=== PATIENT | male | born 1965 | race Caucasian/White ===

== ENCOUNTER 2016-04-29 06:24 | Day surgery (SDC) | payer BC ==
[~2016-04-29] VITALS: Ht 180.3 cm; Wt 107.7 kg
[~2016-04-29 06:24] MED LIST: LACTATED RINGERS 1,000 ML IV SCH; SODIUM CHLORIDE FLUSH 3 ML SYR IV PRN
[2016-04-29 06:34] VITALS: BP 145/86
[2016-04-29] MEDS ORDERED: MIDAZOLAM 2 MG/2 ML (VERSED) VIAL ONE (07:17)
[2016-04-29] MEDS ORDERED: ALFENTANIL 500 MCG/ML (ALFENTA) 5 ML AMP IV ONE (07:18)
[2016-04-29] MEDS ORDERED: PROPOFOL 20 ML IV ONE ×2 (07:18)
[2016-04-29 08:10] VITALS: BP 108/73
[2016-04-29 08:35] VITALS: BP 136/85
== END 2016-04-29 08:40 | disposition home or self-care (01) ==
LOC: ASC 06:24
PROVIDERS: ATTEND Surgery
DX: K62.5 Hemorrhage of anus and rectum (principal); D12.5 Benign neoplasm of sigmoid colon; K64.9 Unspecified hemorrhoids; I10 Essential (primary) hypertension; F17.200 Nicotine dependence, unspecified, uncomplicated; F17.220 Nicotine dependence, chewing tobacco, uncomplicated
CPT/HCPCS: 45381; 45385; J2250; J7120